=== PATIENT | female | born 1955 | race Caucasian/White ===

== ENCOUNTER 2020-01-22 00:02 | Emergency (ER) | payer OTHER, SELFPAY ==
[2020-01-22 01:08] LABS: Bacteria/HPF None Seen HPF (None Seen); Bilirubin Negative (Negative); Blood, Urine Negative (Negative); Clarity Turbid (Clear); Glucose, Urine (Dipstick) 100 mg/dL (Negative); Ketone, Urine 20 mg/dL (Negative); Leukocyte Negative Leu/uL (Negative); Nitrite Negative (Negative); Protein, Urine (Dipstick) 50 mg/dL (Neg-Trace); RBC/HPF 0-3 HPF (0-3); Specific Gravity, Urine 1.029 (1.002-1.036); Urobilinogen Normal mg/dL (Less than 2); pH, Urine 5.5 (5.0-9.0)
[2020-01-22 01:10] LABS: #Lymphocytes 1.1 thou/uL (1.20-3.40); #Monocytes 0.4 thou/uL (0.11-0.59); #Neutrophils 1.7 thou/uL (1.40-6.50); %Basophils 0.2 % (0.0-1.0); %Eosinophils 0.7 % (0.0-10.0); %Lymphocytes 33.6 % (21.0-51.0); %Monocytes 11.8 % (0.0-10.0); %Neutrophils 53.7 % (42.0-75.0); Hemoglobin 14.2 g/dL (12.0-16.0); Mean Corpuscular HGB CONC 32.9 g/dL (32.0-36.0); Mean Corpuscular Hemoglobin 28.7 pg (27.0-31.0); Mean Corpuscular Volume 87.2 fL (78.0-98.0); Mean Platelet Volume 8.1 fL (7.4-10.4); Platelet Count 114 thou/uL (130-400); Platelet Morphology Comment Appears Decreased; RBC Morphology Normal; Red Blood Cell (RBC) Count 4.93 mill/uL (4.20-5.40); White Blood Cell (WBC) Count 3.2 thou/uL (4.8-10.8)
[2020-01-22 01:11] LABS: ALT (SGPT) 11 U/L (8-55); AST (SGOT) 14 U/L (5-34); Albumin 3.5 g/dL (3.4-4.8); Alkaline Phosphatase 60 U/L (40-110); Anion Gap 12 mmol/L (10-20); BUN (Urea Nitrogen) 11 mg/dL (9.8-20.1); Bilirubin, Total 0.3 mg/dL (0.2-1.2); Calc. Creatinine Clearance 0 mL/min (70-130); Calcium 8.7 mg/dL (7.8-10.44); Carbon Dioxide 27 mmol/L (23-31); Chloride 101 mmol/L (98-107); Globulin 3.1 g/dL (2.4-3.5); Glucose 190 mg/dL (80-115); Lipase 6 U/L (8-78); Potassium 3.4 mmol/L (3.5-5.1); Protein, Total 6.6 g/dL (6.0-8.3); Sodium 137 mmol/L (136-145)
[2020-01-22] MEDS ORDERED: Fentanyl 100 MCG/2 ML VIAL ONE (05:40)
[2020-01-22] MEDS ORDERED: Ondansetron ODT 4 MG TAB ONE (05:41)
--- NOTE | 2020-01-22 08:20 | CT ---
PRELIMINARY REPORT/DIRECT RADIOLOGY/EMERGENCY AFTER HOUS PROCEDURE: EXAM: CT Abdomen and Pelvis with Intravenous Contrast CLINICAL HISTORY: PT REPORTING ABDOMINAL PAIN WITH DISTENSION BEGINNING WEDNES MORNING. PT REPORTS LAST NORMAL BM TO BE 1 WEEK AGO TECHNIQUE: Axial computed tomography images of the abdomen and pelvis with intravenous contrast. CONTRAST: With; ISOVUE 370,100mL COMPARISON: None provided. FINDINGS: LUNG BASES: Patchy basilar consolidative opacities. LIVER: Unremarkable. GALLBLADDER AND BILE DUCTS: Surgically absent. No pathologic ductal dilation. PANCREAS: Unremarkable. SPLEEN: Unremarkable. ADRENAL GLANDS: Unremarkable. KIDNEYS, URETERS, AND BLADDER: Unremarkable. No hydronephrosis or nephrolithiasis. No ureteral or domonique dder calculi. STOMACH AND BOWEL: No obstruction. No wall thickening. Scattered colonic diverticuli. No CT evidenc e of colitis or acute diverticulitis. APPENDIX: No CT evidence for appendicitis. PERITONEUM: No free fluid. No free air. LYMPH NODES: No lymphadenopathy. REPRODUCTIVE: Uterus is surgically absent. No suspicious adnexal mass. VASCULATURE: No aortic aneurysm. BONES: No fracture or suspicious osseous abnormality. ABDOMINAL WALL AND SOFT TISSUES: Unremarkable. IMPRESSION: 1. No acute intra-abdominal or pelvic abnormality. 2. Patchy basilar consolidative opacities which may represent infection. Correlate with upper respi ratory symptoms. 3. Scattered colonic diverticuli. No evidence of acute diverticulitis. ELECTRONICALLY SIGNED BY: Amaury Marquez DO Jan 22, 2020 3:59:14 AM [facility] FINAL REPORT ABDOMEN AND PELVIC CT SCAN WITH CONTRAST: EMERGENCY AFTER HOURS EXAM TIME: 3:16 AM. DATE: 01/22/2020. This is a final report Bibasilar patchy alveolar parenchymal changes concerning for patchy pneumonia postcholecystectomy com mon bile duct dilatation. Fatty changes in the pancreas. No renal calculus or obstruction. No CT evidence for acute appendicitis. Minimal sigmoid colon diverticulosis without acute diverticulitis. This report agrees with the preliminary report. Transcribed Date/Time: 01/22/2020 8:31 AM
[2020-01-22] MEDS ORDERED: Iopamidol-370 76% 500 ML 1 ML ONE (14:21)
== END 2020-01-22 05:06 | disposition home or self-care (01) ==
LOC: ERS 00:02
DX: R14.0 Abdominal distension (gaseous) (principal); R10.9 Unspecified abdominal pain; E11.9 Type 2 diabetes mellitus without complications; Z79.899 Other long term (current) drug therapy
CPT/HCPCS: 36415; 74177; 80053; 81003; 81015; 83690; 85025; 96374; 96375; 96376; J3010; Q0162; Q9967